=== PATIENT | male | born 1955 | race African-American/Black ===

== ENCOUNTER 2020-09-11 16:39 | Emergency (ER) | payer OTHER ==
[~2020-09-11] VITALS: Ht 177.8 cm; Wt 131.5 kg
--- NOTE | 2020-09-11 18:09 | NUR ---
Krystal banegas in ED - 09/11/20 at 1834 by JEANINE Patient left without being seen by ER Physician
--- NOTE | 2020-09-11 18:41 | NUR ---
patient came in to the c/o generalized weakness x 3 days. On room air, breathing evenly and unlabored. Kept comfortable, will continue to monitor accordingly.
--- NOTE | 2020-09-11 19:17 | NUR ---
PT REFUSES LABS.
--- NOTE | 2020-09-11 20:22 | NUR ---
lab with pt for blood draw
--- NOTE | 2020-09-11 20:31 | NUR ---
COVID SWAB COLLECTED. SENT TO LAB
[2020-09-11 20:45] LABS: BASOPHILS # (AUTO) 0.1 /CMM (0.0-0.2); BASOPHILS % (AUTO) 1.9 % (0.0-2.0); EOSINOPHILS % (AUTO) 1.7 % (0.0-6.0); HEMATOCRIT 51 % (39-51); HEMOGLOBIN 16.7 g/dL (13.5-17.5); LYMPHOCYTES # (AUTO) 1.4 /CMM (0.8-4.8); MEAN CORPUSCULAR HGB CONC 33 g/dl (31.0-36.0); MEAN CORPUSCULAR VOLUME 90 fL (80-96); MONOCYTES # (AUTO) 0.4 /CMM (0.1-1.30); MONOCYTES % (AUTO) 7.2 % (2.0-12.0); NEUTROPHILS # (AUTO) 4.1 /CMM (1.8-8.9); NEUTROPHILS % (AUTO) 66.2 % (43.0-81.0); PLATELET COUNT (AUTO) 271 /CMM (150-450); RED BLOOD CELL COUNT(AUTO) 5.66 MIL/uL (4.5-6.0); WHITE BLOOD COUNT (AUTO) 6.1 K/uL (4.3-11.0)
[2020-09-11 21:09] LABS: CARBON DIOXIDE 29 mmol/L (21-32); CHLORIDE 100 mmol/L (98-107); CREATININE 1.2 mg/dL (0.6-1.3); GLUCOSE 304 mg/dL (74-106); POTASSIUM 3.5 mmol/L (3.5-5.1); SODIUM SERUM 137 mmol/L (136-145); UREA NITROGEN, BLOOD 12 mg/dL (7-18)
--- NOTE | 2020-09-11 21:39 | NUR ---
Patient discharged to home in stable condition. Written and verbal after care instructions given. Patient verbalizes understanding of instruction. Pt ambulatory with a steady gait. pt call back number for covid results [phone]
[2020-09-11 21:41] VITALS: BP 158/89
== END 2020-09-11 21:41 | disposition home or self-care (01) ==
LOC: ER 16:48
DX: R41.82 Altered mental status, unspecified (principal); Z20.828 Contact with and (suspected) exposure to other viral communicable diseases; Z86.73 Personal history of transient ischemic attack (TIA), and cerebral infarction without residual deficits; R94.31 Abnormal electrocardiogram [ECG] [EKG]; R03.0 Elevated blood-pressure reading, without diagnosis of hypertension
CPT/HCPCS: 36415; 70450; 71045; 80048; 84484; 85025; 85730; 87426; 93005; 99285; C9803

== ENCOUNTER 2022-02-18 13:59 | Emergency (ER) | payer OTHER ==
[~2022-02-18] VITALS: Ht 177.8 cm; Wt 106.6 kg
--- NOTE | 2022-02-18 14:15 | NUR ---
BIB [facility],BLOOD PRESSURE WAS NOTED TO BE ELEVATED BUT DENIES ANY SX. PLACE ON BED, [id number]. SEEN AND EXAMINED BY DR PADILLA.
[2022-02-18] MEDS ORDERED: LOSA100T3 PO (14:26)
--- NOTE | 2022-02-18 14:30 | NUR ---
Patient discharged to home in stable condition. Written and verbal after care instructions given. Patient verbalizes understanding of instruction.
[2022-02-18 15:12] VITALS: BP 150/98
== END 2022-02-18 14:35 | disposition home or self-care (01) ==
LOC: ER 14:01
DX: I10 Essential (primary) hypertension (principal); Z79.899 Other long term (current) drug therapy